=== PATIENT | male | born 1970 | race Caucasian/White ===

== ENCOUNTER 2019-02-17 10:26 | Emergency (ER) | payer BC ==
[~2019-02-17] VITALS: Ht 172.7 cm; Wt 81.7 kg
[~2019-02-17 10:26] MED LIST: HYDACE5 PO; OXYACE5T PO; VICODIN 5-3001 EACH PO
== END 2019-02-17 12:31 | disposition home or self-care (01) ==
LOC: ER 10:26
DX: R45.1 Restlessness and agitation (principal); Z88.8 Allergy status to other drugs, medicaments and biological substances; F17.210 Nicotine dependence, cigarettes, uncomplicated
CPT/HCPCS: 99284

== ENCOUNTER 2023-03-07 11:37 | Emergency (ER) | payer BC ==
[~2023-03-07] VITALS: Ht 172.7 cm; Wt 77.1 kg
[2023-03-07 11:44] VITALS: BP 133/100
[2023-03-07 12:28] LABS: Source, Urine Clean Catch
[2023-03-07 12:30] LABS: Appearance, Urine Clear (Clear); Bilirubin, Urine Neg (Neg); Blood, Urine 1+ (Neg); Color, Urine Yellow (P-Yellow); Glucose Qualitative, Urine Neg (Neg); Ketones, Urine Neg (Neg); Leukocyte Esterase, Urine Neg (Neg); Nitrite, Urine Neg (Neg); Protein, Urine Neg (Neg); Urobilinogen, Urine NORM (Normal); pH, Urine 6.5 (5.0-8.0)
[2023-03-07 12:42] LABS: Bacteria Not Seen /hpf; Squamous Epithelial Cells Not Seen /hpf (Few); White Blood Cells, Urine Not Seen /hpf (0-5)
[2023-03-07] MEDS ORDERED: IBUP800 PO (13:29)
[2023-03-07] MEDS ORDERED: Robaxin750 MG PO (13:29)
== END 2023-03-07 13:44 | disposition home or self-care (01) ==
LOC: ER 11:37
PROVIDERS: Physician Assistant
DX: M54.50 Low back pain, unspecified (principal); G89.29 Other chronic pain; M25.551 Pain in right hip; M79.604 Pain in right leg; F17.200 Nicotine dependence, unspecified, uncomplicated; Z88.8 Allergy status to other drugs, medicaments and biological substances
CPT/HCPCS: 81001; 96372; 99283-25; A9270; J1885